=== PATIENT | male | born 1950 | race Caucasian/White ===

== ENCOUNTER 2017-01-01 09:07 | Day surgery (SDC) | payer BC ==
--- NOTE | 2016-12-27 11:38 | HP ---
DATE OF ADMISSION: 01/01/2013 PREOPERATIVE DIAGNOSIS: Bilateral inguinal hernias. BRIEF HISTORY: This is a 66-year-old gentleman with at least a 5-year history of having a lump and hernia in the right groin region. Over this time course, the lump has gotten significantly larger and now the patient states that whenever he coughs or has to strain to urinate he has to hold up his right groin because the mass becomes very large and causes discomfort. He has had no nausea, no vomiting. No change in bowel habits. He also has discomfort in the right groin from bending or prolonged standing. Occasionally has discomfort in the left groin as well. PAST MEDICAL HISTORY: Significant for hypertension, hypercholesterolemia, and diabetes. He has arthritis as well as depression, anxiety disorder. ALLERGIES: LACTOSE AND PENICILLIN; HOWEVER HIS PENICILLIN ALLERGY IS A CHILD AND NOT ENTIRELY CLEAR. MEDICATIONS: Cozaar, Metrozine, gabapentin, clonazepam. SOCIAL HISTORY: The patient does not smoke, nor drink. PHYSICAL EXAMINATION: LUNGS: Clear. HEART: Regular. ABDOMEN: Soft, nontender, nondistended. 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 He has a small supraumbilical hernia. It is chronically incarcerated. He has a large right inguinal hernia with extension through the proximal scrotum. The hernia is partially reducible in the supine. The right scrotum and testicle is within normal limits. On the left side, he has a small inguinal hernia as well. It is reducible. Left scrotum and testicle is within normal limits. IMPRESSION/PLAN: Bilateral inguinal hernias, small chronically incarcerated umbilical hernia, diastasis recti colon in a 66-year-old gentleman who has become much more symptomatic from a known large right inguinal hernia. At this point, I would recommend a laparoscopic repair of this hernia. Incidentally noted is a small left inguinal hernia and this should be repaired at the same setting. Both hernias will be repaired with mesh. The indications, alternatives, complications of the procedure were discussed at length. Questions answered. We will plan on obtaining written consent the day of surgery. LAN SMITH M.D. [id number] cc: Judy Swanson MD, [address] [facility] [address], [place], [place] Phone number [phone]
[2016-12-27 15:57] VITALS: BMI 25.8
[2017-01-01] MEDS ORDERED: LEVOFLOXACIN 500 MG IVPB 100 ML IVPB ONE (09:24)
[2017-01-01] MEDS ORDERED: TAMSULOSIN HCL 0.4 MG CAP.ER.24H (FP) ONE (09:26)
[2017-01-01] MEDS ORDERED: ROCURONIUM BROMIDE 50 MG/5 ML VIAL ONE ×2 (12:34→13:15)
[2017-01-01] MEDS ORDERED: PROPOFOL 20 ML ONE (12:34)
[2017-01-01] MEDS ORDERED: MIDAZOLAM HCL 2 MG/2 ML SINGLE DOSE VIAL ONE ×2 (12:34→14:07)
[2017-01-01] MEDS ORDERED: LIDOCAINE HCL/PF 2% SDV 5ML VIAL ONE (12:35)
[2017-01-01] MEDS ORDERED: LEVOFLOXACIN 500 MG PREMIX BAG IVPB ONE (12:49)
[2017-01-01] MEDS ORDERED: DEXAMETHASONE SOD PHOSPHATE 4 MG/1 ML VIAL ONE (13:22)
[2017-01-01] MEDS ORDERED: GLYCOPYRROLATE 0.2 MG/1 ML VIAL ONE ×2 (13:37→13:57)
[2017-01-01] MEDS ORDERED: NEOSTIGMINE METHYLSULFATE 0.5 MG/ML - 10 ML MDV ONE (13:37)
[2017-01-01] MEDS ORDERED: KETOROLAC TROMETHAMINE 30 MG/1 ML VIAL ONE (14:08)
[2017-01-01] MEDS ORDERED: ONDANSETRON 4 MG/2 ML VIAL IVPUSH PRN (14:13)
[2017-01-01] MEDS ORDERED: oxyCODONE HCL 5 MG TABLET PO PRN (14:13)
[2017-01-01] MEDS ORDERED: PROMETHAZINE HCL 25 MG/1 ML VIAL IVPUSH PRN (14:13)
[2017-01-01] MEDS ORDERED: LACTATED RINGERS SOLUTION 1,000 ML IV SCH (14:15)
[2017-01-01] MEDS ORDERED: HYDROmorphone HCL CARPU-JECT 2 MG/1 ML DISP.SYRIN ONE (14:43)
[2017-01-01] MEDS: HYDROmorphone HCL CARPU-JECT 1 MG/1 ML DISP.SYRIN IVPUSH PRN ×2 (14:55→15:00)
[2017-01-01 16:02] VITALS: TEMP 98.2
[2017-01-01] MEDS ORDERED: ONDANSETRON 4 MG/2 ML VIAL ONE (17:59)
[2017-01-01] MEDS ORDERED: ONDANSETRON 4 MG/2 ML VIAL IVPB ONE (18:00)
[2017-01-01 20:03] VITALS: BP 140/80; PULSE 84
--- NOTE | 2017-01-02 08:41 | OP ---
DATE OF OPERATION: 01/01/2017 PREOPERATIVE DIAGNOSIS: Chronically incarcerated bilateral inguinal hernias. POSTOPERATIVE DIAGNOSIS: Chronically incarcerated bilateral inguinal hernias, patient had bilateral incarcerated direct components, patient had bilateral pantaloon inguinal hernias, right markedly greater than left. PROCEDURES: Laparoscopic repair of bilateral inguinal hernias with mesh. SURGEON: Jeffery Bishop MD SUPERVISOR MECH[employer]IC BOILERMAKING: Francisco Valdes DO ANESTHESIA: Roney Mace MD (general). ESTIMATED BLOOD LOSS: Minimal. SPECIMEN: None. MEDICAL COMORBIDITIES: Include hypertension, hypercholesterolemia, diabetes, arthritis, depression, anxiety disorder, and coronary artery disease. INDICATIONS/PROCEDURE: This is a 66-year-old gentleman with a five year history of having a lump and a hernia in the right groin region. Over this time, of course, the lump has gotten very large, and now he has pain in the area when he coughs or strains or urinates. He wishes to have his hernias repaired. Patient was identified and appropriately positioned on the operating room table. After placement of general anesthesia, the abdomen was prepped and draped in the usual sterile fashion with ChloraPrep. An infraumbilical incision was made deep into the subcutaneous tissues. The fascia of the rectus muscle on the right identified, divided sharply, the muscles split. Under direct vision, a dissector balloon followed by structural balloon was placed. Also, under direct vision a suprapubic 11-mm port placed. The following structures on the right side identified, pubic tubercle, Coopers ligament, inferior epigastric vessels, spermatic cord, and lateral abdominal wall. During this dissection, the patient was noted to have a large direct inguinal hernia containing fat and portions of the bladder. This reduced back in the preperitoneal space with blunt dissection. He had a moderate-sized indirect inguinal hernia sac reduced back in the preperitoneal space with a small cord lipoma. A 4.5 x 6 piece of Versatex mesh was keyhole placed through the suprapubic port site. The mesh was wrapped around the cord structures laterally to reconstruct the internal ring. Laterally, the mesh anchored to the anterior abdominal wall and lateral abdominal wall. Medially, the mesh anchored to the anterior abdominal wall, pubic tubercle, and Coopers ligament. Upon completion of the right side, similar structures on the left side were identified. He had a similar finding on the left, but not as severe. There was an incarcerated direct inguinal hernia containing fat, smaller. This fat was reduced back into the preperitoneal space. He had a small indirect inguinal hernia sac, as well. This reduced back into the preperitoneal space. Another 4.5 x 6 piece of Versatex mesh was keyhole placed through the suprapubic port site. The mesh wrapped around the cord structures laterally to reconstruct the internal ring. Laterally, the mesh anchored to the anterior abdominal wall and lateral abdominal wall. Medially, the mesh well overlapped in the midline, anchored to the anterior abdominal wall, pubic tubercle, and Coopers ligament. The preperitoneal space desufflated under direct vision. The operative field was noted to be hemostatic. The fascia at the suprapubic port site and infraumbilical port site were reapproximated with interrupted 0 Vicryl suture. All skin closed with 4-0 Biosyn followed by Dermabond. At the conclusion of the case, sponge counts were correct. ATTESTATION: Brief operative note handwritten on the preprinted form. [place] CNC MANAGER will be queried prior to giving any narcotics. Opal JOHNSON [id number] cc: Susana Swanson, [address] [place] [address], [address], [place].
== END 2017-01-01 20:09 | disposition home or self-care (01) ==
LOC: JASU-SURG 09:07
PROVIDERS: ATTEND Surgery
PROC: 0YUA4JZ Supplement Bilateral Inguinal Region with Synthetic Substitute, Percutaneous Endoscopic Approach (ICD-10-PCS; principal; 2017-01-01 11:00)
DX: K40.00 Bilateral inguinal hernia, with obstruction, without gangrene, not specified as recurrent (principal)
CPT/HCPCS: 94760

== ENCOUNTER 2017-07-24 16:01 | Emergency (ER) | payer BC ==
[2017-07-24] MEDS ORDERED: ASPIRIN 81 MG CHEWABLE TABLETS PO ONE (16:05)
--- NOTE | 2017-07-24 16:06 | PDOC ---
Rapid Medical Evaluation Chief Complaint: Chest Pain Time Seen by Provider: 07/24/17 16:04 Medical Evaluation: Allergies Allergy/AdvReac Type Severity Reaction Status Date / Time Sulfa (Sulfonamide Allergy Severe Swelling Verified 12/27/16 15:46 Antibiotics) Penicillins Allergy Intermediate Swelling Verified 12/27/16 15:46 lactose AdvReac Intermediate Verified 12/27/16 15:45 07/24/17 16:05 66 year old male with HTN, dyslipidemia, depression, former smoker (quit 30 yrs ago) presenting with abdominal discomfort, chest pain, jaw pain that started while "power walking" just prior to arrival. -EKG -Labs including CBC, CMP, cardiac profile, PT/INR -CXR -ASA 325mg -To Main ED for further evaluation
[2017-07-24 16:07] VITALS: TEMP 98.2; BMI 28.7
[2017-07-24] MEDS ORDERED: ASPIRIN 81 MG CHEWABLE TABLETS ONE (16:25)
[2017-07-24 16:57] LABS: ALBUMIN 4.2 g/dl (3.4-5.0); ANION GAP 3 (8-16); BILIRUBIN,TOTAL 0.2 mg/dL (0.2-1.0); BLOOD UREA NITROGEN 14 mg/dL (7-18); CALCIUM 8.9 mg/dL (8.5-10.1); CHLORIDE 105 mmol/L (98-107); CO2 31 mmol/L (21-32); CREATININE 0.9 mg/dL (0.7-1.3); GLUCOSE,RANDOM 104 mg/dL (74-106); POTASSIUM 4.1 mmol/L (3.5-5.1); SGOT/AST 11 U/L (15-37); SGPT/ALT 20 U/L (12-78); SODIUM 139 mmol/L (136-145); TOT PROT 7.3 g/dl (6.4-8.2)
[2017-07-24 16:59] LABS: INR 0.99 (0.82-1.09); PROTHROMBIN TIME (PATIENT) 11.2 SEC (9.98-11.88)
[2017-07-24 17:00] LABS: ALK PHOS 81 U/L (45-117)
[2017-07-24] MEDS ORDERED: PANTOPRAZOLE SODIUM 40 MG in SODIUM CHLORIDE 100 ML IVPB ONE (17:15)
[2017-07-24 17:47] LABS: BASO % 0.4 % (0-2.0); EOS % 1.6 % (0-4.5); HEMATOCRIT 39.8 % (35.4-49); HEMOGLOBIN 13.6 GM/dL (11.7-16.9); LYMPH % 20.7 % (8-40); MCH 29.7 pg (25.7-33.7); MCHC 34.2 g/dl (32.0-35.9); MEAN CELL VOLUME 86.9 fl (80-96); MONO % 6.5 % (3.8-10.2); NEUT % 70.8 % (42.8-82.8); PLATELET COUNT 231 K/MM3 (134-434); RBC 4.58 M/mm3 (4.00-5.60); RDW 13.5 % (11.9-15.9); WHITE BLOOD COUNT 6.6 K/mm3 (4.0-10.0)
[2017-07-24] MEDS ORDERED: PANTOPRAZOLE SODIUM 40 MG VIAL ONE (18:00)
--- NOTE | 2017-07-24 18:16 | PDOC ---
History of Present Illness - General Chief Complaint: Chest Pain Stated Complaint: CHEST PAIN/JAW PAIN Time Seen by Provider: 07/24/17 16:04 History Source: Patient Exam Limitations: No Limitations - History of Present Illness Initial Comments: 07/24/17 17:17 66-year-old male presents to the emergency room with complaints of epigastric fluttering after power walking from his car to [facility]. Patient states although symptoms resolved within minutes he started to experience left jaw pain a few minutes thereafter which she describes an aching sensation which now has resolved. Patient denies history of cardiac disease but states history of hypertension borderline cholesterol and was a smoker 30 years ago. Patient states history of anxiety and has expanded similar symptoms the above but never associated which or pain. Patient states takes his Klonopin as needed. Patient states his last echo and stress was over 6 years ago and does not have a grand scribe. Patient denied left-sided chest pain pressure or palpitations since onset 2 hours ago. 07/24/17 18:20 Timing/Duration: changing over time Severity: moderate Associated Symptoms: reports: other Aspirin Received prior to arrival: Yes: 325 mg x 1, provided by ED Beta Radha Given by EMS(Core Measure): No Beta Radha Taken at Home(Core Measure): No Beta Radha Not Indicated at this Time(Core Measure): No Past History - Travel Traveled outside of the country in the last 30 days: No - Past Medical History Allergies/Adverse Reactions: Allergies Allergy/AdvReac Type Severity Reaction Status Date / Time Sulfa (Sulfonamide Allergy Severe Swelling Verified 07/24/17 16:07 Antibiotics) Penicillins Allergy Intermediate Swelling Verified 07/24/17 16:07 lactose AdvReac Intermediate Verified 07/24/17 16:07 Home Medications: Ambulatory Orders Lamotrigine [Lamotrigine ER] 350 mg PO DAILY 12/27/16 Losartan Potassium [Cozaar -] 150 mg PO DAILY 12/27/16 clonazePAM [Klonopin -] 0.5 mg PO BID 12/27/16 Oxycodone HCl/Acetaminophen [Percocet 5-325 mg Tablet] 1 tab PO Q4H PRN #42 tablet MDD 6 01/01/17 COPD: No HTN: Yes - Surgical History Abdominal Surgery: Yes (hernia repair) - Suicide/Smoking/Psychosocial Hx Smoking History: Former smoker Have you smoked in the past 12 months: No If you are a former smoker, when did you quit?: 1991 Information on smoking cessation initiated: No Hx Alcohol Use: No Drug/Substance Use Hx: No Substance Use Type: None Hx Substance Use Treatment: No Patient Lives Alone: Yes Lives with/in: lives alone Review of Systems - Review of Systems Able to Perform ROS?: Yes Constitutional: No: Symptoms Reported HEENTM: No: Symptoms Reported Respiratory: No: Symptoms reported Cardiac (ROS): Yes: Other ABD/GI: Yes: Indigestion Musculoskeletal: Yes: Neck Pain (left side) Integumentary: No: Symptoms Reported Neurological: No: Symptoms reported Endocrine: No: Symptoms Reported *Physical Exam - Vital Signs Last Vital Signs Temp Pulse Resp BP Pulse Ox 98.2 F 80 18 141/90 98 07/24/17 16:05 07/24/17 16:05 07/24/17 16:05 07/24/17 16:05 07/24/17 16:05 - Physical Exam General Appearance: Yes: Nourished, Appropriately Dressed. No: Apparent Distress HEENT: negative: Pale Conjunctivae Neck: positive: Normal Thyroid, Supple. negative: Tender, Decreased range of motion Respiratory/Chest: positive: Lungs Clear, Normal Breath Sounds. negative: Chest Tender Cardiovascular: positive: Regular Rhythm, Regular Rate. negative: Murmur Gastrointestinal/Abdominal: positive: Normal Bowel Sounds, Soft, Tenderness ( mild epigastric). negative: Distended, Guarding, Rebound Extremity: positive: Normal Capillary Refill. negative: Pedal Edema Integumentary: positive: Normal Color, Warm, Moist Neurologic: positive: Motor Strength 5/5 (ambulatory). negative: Normal Mood/ Affect (mildly anxious) ED Treatment Course - LABORATORY CBC & Chemistry Diagram: 07/24/17 16:21 07/24/17 16:21 - ADDITIONAL ORDERS Additional order review: Laboratory Results 07/24/17 07/24/17 16:21 16:21 PT with INR 11.20 INR 0.99 Sodium 139 Potassium 4.1 Chloride 105 Carbon Dioxide 31 Anion Gap 3 L BUN 14 Creatinine 0.9 Creat Clearance w eGFR > 60 Random Glucose 104 Calcium 8.9 Total Bilirubin 0.2 AST 11 L ALT 20 Alkaline Phosphatase 81 Creatine Kinase 113 Troponin I < 0.02 Total Protein 7.3 Albumin 4.2 07/24/17 16:21 RBC 4.58 MCV 86.9 MCHC 34.2 RDW 13.5 MPV 9.0 Neutrophils % 70.8 Lymphocytes % 20.7 Monocytes % 6.5 Eosinophils % 1.6 Basophils % 0.4 - Medications Given in the ED: ED Medications Discontinued Medications Generic Name Dose Route Start Last Admin Trade Name Poncho PRN Reason Stop Dose Admin Aspirin 324 mg 07/24/17 16:05 07/24/17 16:28 Asa - PO 07/24/17 16:06 324 mg ONCE ONE Administration Pantoprazole Sodium 40 mg/ 100 mls @ 200 mls/hr 07/24/17 17:15 07/24/17 17:30 Sodium Chloride IVPB 07/24/17 17:44 200 mls/hr ONCE ONE Administration Medical Decision Making - Medical Decision Making 07/24/17 18:22 Patient with episodic epigastric pain which resolved followed by his left jaw pain. Patient was concerned that this may be related to a heart attack versus anxiety so decided come to the ER. Patient states first went to [facility] but left since the wait was long and loud 07/24/17 18:24 Laboratory Tests 07/24/17 07/24/17 07/24/17 16:21 16:21 16:21 WBC 6.6 Hgb 13.6 Hct 39.8 Plt Count 231 Neutrophils % 70.8 PT with INR 11.20 INR 0.99 Sodium 139 Potassium 4.1 Chloride 105 Carbon Dioxide 31 Anion Gap 3 L BUN 14 Creatinine 0.9 Creat Clearance w eGFR > 60 Random Glucose 104 Calcium 8.9 Total Bilirubin 0.2 AST 11 L ALT 20 Creatine Kinase 113 Troponin I < 0.02 Total Protein 7.3 Albumin 4.2 Chest x-ray negative for acute findings. Patient will have second troponin done at 720 along with an EKG. Pt remains asymptomatic in regards to left-sided chest pain, palpitations, or pressure. 07/24/17 18:33 Patient states symptoms of epigastric discomfort has resolved with Protonix. Patient requesting to eat. Patient given tray
[2017-07-24] MEDS ORDERED: LOSARTAN POTASSIUM 50 MG TABLET (FP) PO ONE (18:31)
[2017-07-24] MEDS ORDERED: LOSARTAN POTASSIUM 25 MG TABLET ONE (19:05)
--- NOTE | 2017-07-24 20:37 | PDOC ---
*Physical Exam - Vital Signs Last Vital Signs Temp Pulse Resp BP Pulse Ox 98.2 F 68 16 137/101 100 07/24/17 16:05 07/24/17 18:31 07/24/17 18:31 07/24/17 18:31 07/24/17 18:31 ED Treatment Course - LABORATORY CBC & Chemistry Diagram: 07/24/17 16:21 07/24/17 16:21 - ADDITIONAL ORDERS Additional order review: Laboratory Results 07/24/17 07/24/17 16:21 16:21 PT with INR 11.20 INR 0.99 Sodium 139 Potassium 4.1 Chloride 105 Carbon Dioxide 31 Anion Gap 3 L BUN 14 Creatinine 0.9 Creat Clearance w eGFR > 60 Random Glucose 104 Calcium 8.9 Total Bilirubin 0.2 AST 11 L ALT 20 Alkaline Phosphatase 81 Creatine Kinase 113 Troponin I < 0.02 Total Protein 7.3 Albumin 4.2 07/24/17 16:21 RBC 4.58 MCV 86.9 MCHC 34.2 RDW 13.5 MPV 9.0 Neutrophils % 70.8 Lymphocytes % 20.7 Monocytes % 6.5 Eosinophils % 1.6 Basophils % 0.4 - Medications Given in the ED: ED Medications Discontinued Medications Generic Name Dose Route Start Last Admin Trade Name Freq PRN Reason Stop Dose Admin Aspirin 324 mg 07/24/17 16:05 07/24/17 16:28 Asa - PO 07/24/17 16:06 324 mg ONCE ONE Administration Pantoprazole Sodium 40 mg/ 100 mls @ 200 mls/hr 07/24/17 17:15 07/24/17 17:30 Sodium Chloride IVPB 07/24/17 17:44 200 mls/hr ONCE ONE Administration Losartan Potassium 100 mg 07/24/17 18:31 07/24/17 18:35 Cozaar - PO 07/24/17 18:32 100 mg ONCE ONE Administration Medical Decision Making - Medical Decision Making 07/24/17 20:33 Patient was endorsed to me to follow repeat cardiac enzymes and EKG and disposition. patient seen and evaluated. States is feeling better and is refusing repeat trop and ekg. He was advised that this condition is undiagnosed and trop is essential to his work up and could be having a heart attack. states he understand and want to sign out AMA. Patient is alert and oriented, and expressed that he would like to leave AGAINST MEDICAL ADVICE. I discussed with them the risks of leaving include , undiagnosed cardiac condition. Patient states he would like to leave because he feels better and does not want to stay. I believe that the patient understands our discussion and is capable of making an informed decision about leaving against medical advice. I also discussed with the patient that they may return at any time to complete their workup *DC/Admit/Observation/Transfer Diagnosis at time of Disposition: Chest pain - Discharge Dispostion Disposition: AGAINST MEDICAL ADVICE Condition at time of disposition: Stable - Referrals - Patient Instructions Printed Discharge Instructions: DI for Chest Pain Additional Instructions: Your Discharge Instructions: You are leaving AGAINST MEDICAL ADVICE. You must call primary care physician within 24 hours to arrange follow-up. Return to the Emergency Department with any new, persistent or worsening symptoms, for fever, chills, SOB, dizziness or any other concerning changes that may occur. - Post Discharge Activity
[2017-07-24 20:43] VITALS: BP 135/96; PULSE 74
--- NOTE | 2017-07-25 10:41 | EKG ---
Test Reason : Blood Pressure : / mmHG Vent. Rate : 078 BPM Atrial Rate : 078 BPM P-R Int : 194 ms QRS Dur : 114 ms QT Int : 386 ms P-R-T Axes : 039 -38 043 degrees QTc Int : 440 ms SINUS RHYTHM WITH OCCASIONAL PREMATURE VENTRICULAR COMPLEXES LEFT AXIS DEVIATION ABNORMAL ECG NO PREVIOUS ECGS AVAILABLE Confirmed by TARA GUPTA MD ([id number]) on 07/25/2017 10:41:23 AM Referred By: Confirmed By:TARA GUPTA MD
== END 2017-07-24 20:43 | disposition left against medical advice (07) ==
LOC: JER 16:01
DX: I10 Essential (primary) hypertension (principal); E78.00 Pure hypercholesterolemia, unspecified; F32.9 Major depressive disorder, single episode, unspecified; Z87.891 Personal history of nicotine dependence
CPT/HCPCS: 36415; 71045-TC-FY; 80053; 82550; 84484; 85025; 85610; 93005; 93010; 99284-25

== ENCOUNTER 2020-05-17 13:19 | Emergency (ER) | payer OTHER, BC ==
[2020-05-17 13:45] VITALS: BP 114/83; PULSE 79; TEMP 99; BMI 25.8
[2020-05-17] MEDS ORDERED: BAMLANIVIMAB 700 MG in SODIUM CHLORIDE 180 ML IVPB ONE (13:54)
== END 2020-05-17 15:10 | disposition home or self-care (01) ==
LOC: JER 13:19
DX: U07.1 COVID-19 (principal)
CPT/HCPCS: 71046-TC-FY; 99284-25

== ENCOUNTER 2020-11-15 20:26 | Emergency (ER) | payer BC ==
[2020-11-15 21:06] VITALS: TEMP 98.6; BMI 26.1
[2020-11-15] MEDS ORDERED: ASPIRIN 81 MG CHEWABLE TABLETS PO ONE (21:44)
[2020-11-15] MEDS ORDERED: ASPIRIN 81 MG CHEWABLE TABLETS ONE (22:02)
[2020-11-15 22:27] LABS: BASO % 1.3 % (0-2.0); EOS % 2.1 % (0-4.5); HEMATOCRIT 39.7 % (35.4-49); HEMOGLOBIN 13.5 GM/dL (11.7-16.9); LYMPH % 28.8 % (8-40); MEAN CELL VOLUME 85.4 fl (80-96); MEAN PLT VOLUME 7.7 fl (7.5-11.1); MONO % 7.4 % (3.8-10.2); NEUT % 60.4 % (42.8-82.8); PLATELET COUNT 212 10^3/uL (134-434); RBC 4.65 M/mm3 (4.00-5.60); RDW 13.7 % (11.9-15.9); WHITE BLOOD COUNT 7.9 K/mm3 (4.0-10.0)
[2020-11-15 22:38] LABS: INR 0.97 (0.83-1.09); PROTHROMBIN TIME (PATIENT) 11.9 SEC (9.7-13.0)
[2020-11-15 22:41] LABS: ACTIVATED PTT 31.1 SECONDS (25.2-36.5)
[2020-11-15 22:46] LABS: CHLORIDE 104 mmol/L (98-107); SODIUM 140 mmol/L (136-145)
[2020-11-15 22:49] LABS: ANION GAP 7 MMOL/L (8-16); BLOOD UREA NITROGEN 16.8 mg/dL (7-18); CO2 30 mmol/L (21-32); GLUCOSE,RANDOM 88 mg/dL (74-106); MAGNESIUM 2.2 mg/dL (1.8-2.4)
[2020-11-15 22:52] LABS: SGPT/ALT 30 U/L (13-61)
[2020-11-15 22:53] LABS: SGOT/AST 18 U/L (15-37)
[2020-11-15 22:54] LABS: BILIRUBIN,TOTAL 0.7 mg/dL (0.2-1); TOT PROT 6.9 g/dl (6.4-8.2)
[2020-11-15 22:55] LABS: ALK PHOS 68 U/L (45-117)
[2020-11-16 03:28] VITALS: BP 127/86; PULSE 73
== END 2020-11-16 | disposition left against medical advice (07) ==
LOC: JER 20:26
DX: R07.9 Chest pain, unspecified (principal)
CPT/HCPCS: 36415; 71046-TC-FY; 80053; 82550; 83735; 84484; 85025; 85610; 85730; 93005; 93010; 99285-25

== ENCOUNTER 2022-02-02 13:22 | Emergency (ER) | payer BC, OTHER ==
[2022-02-02 13:37] VITALS: RESP 18; BMI 28.0
[2022-02-02 15:22] LABS: BASO % 0.5 % (0-2.0); EOS % 1.5 % (0-4.5); HEMATOCRIT 39.1 % (35.4-49); HEMOGLOBIN 13.4 GM/dL (11.7-16.9); LYMPH % 20.7 % (8-40); MCHC 34.2 g/dl (32.0-35.9); MEAN CELL VOLUME 84.8 fl (80-96); MEAN PLT VOLUME 7.6 fl (7.5-11.1); MONO % 9.3 % (3.8-10.2); PLATELET COUNT 230 10^3/uL (134-434); RBC 4.61 M/mm3 (4.00-5.60); RDW 13.6 % (11.9-15.9); WHITE BLOOD COUNT 7.6 K/mm3 (4.0-10.0)
[2022-02-02 15:43] LABS: ALBUMIN 3.9 g/dl (3.4-5.0); BLOOD UREA NITROGEN 16.3 mg/dL (7-18)
[2022-02-02 15:47] LABS: BILIRUBIN,TOTAL 0.3 mg/dL (0.2-1)
[2022-02-02 16:33] VITALS: BP 135/72; PULSE 75; TEMP 98.2
== END 2022-02-02 16:36 | disposition left against medical advice (07) ==
LOC: JER 13:22
DX: R06.02 Shortness of breath (principal)
CPT/HCPCS: 36415; 71046-TC-FY; 80053; 84484; 85025; 93005; 93010; 99285-25

== ENCOUNTER 2023-08-05 05:02 | Day surgery (SDC) | payer OTHER ==
[2023-07-31 13:41] VITALS: BMI 28.0
[2023-08-05] MEDS ORDERED: LIDOCAINE HCL/PF 1% SDV 5ML VIAL ONE (07:11)
[2023-08-05 07:32] VITALS: RESP 18
[2023-08-05] MEDS ORDERED: BUPIVACAINE HCL/PF 0.5% (5MG/ML) 10 ML VIAL ONE (08:14)
[2023-08-05] MEDS ORDERED: TRIAMCINOLONE ACET 40MG/1ML VIAL ONE (08:14)
[2023-08-05] MEDS ORDERED: LIDOCAINE HCL/PF 2% SDV 5ML VIAL ONE (08:16)
[2023-08-05] MEDS ORDERED: SODIUM CHLORIDE 0.9% P/F 10 ML VIAL IJ ONE (08:16)
[2023-08-05] MEDS ORDERED: DEXAMETHASONE SOD PHOSPHATE 10 MG/1 ML VIAL ONE (09:27)
[2023-08-05] MEDS: IOHEXOL 180 MG/1 ML ML IJ ONE ×2 (09:32)
[2023-08-05] MEDS: DEXAMETHASONE SOD PHOSPHATE 10 MG/1 ML VIAL IM ONE (09:32)
[2023-08-05] MEDS: LIDOCAINE HCL 1% PRESERVATIVE FREE - 30ML VIAL IJ ONE ×2 (09:32)
[2023-08-05 09:54] VITALS: BP 140/100; PULSE 86; TEMP 98.6
[2023-08-05] MEDS ORDERED: ACETAMINOPHEN 500 MG TABLET (FP) PO PRN (12:27)
== END 2023-08-05 10:14 | disposition home or self-care (01) ==
LOC: JASU-SURG 05:02
PROVIDERS: ATTEND Pain Medicine Pain Medicine
PROC: 3E0R3BZ Introduction of Anesthetic Agent into Spinal Canal, Percutaneous Approach (ICD-10-PCS; 2023-08-05)
PROC: 3E0R33Z Introduction of Anti-inflammatory into Spinal Canal, Percutaneous Approach (ICD-10-PCS; principal; 2023-08-05 09:15)
DX: M54.16 Radiculopathy, lumbar region (principal)
CPT/HCPCS: 76000-TC-FY; J1100

== ENCOUNTER 2023-09-02 04:37 | Day surgery (SDC) | payer OTHER ==
[2023-08-28 12:23] VITALS: BMI 28.0
[2023-09-02] MEDS ORDERED: LIDOCAINE HCL/PF 1% SDV 5ML VIAL ONE (07:11)
[2023-09-02] MEDS ORDERED: DEXAMETHASONE SOD PHOSPHATE 10 MG/1 ML VIAL ONE (07:11)
[2023-09-02 10:44] VITALS: TEMP 97.9
[2023-09-02] MEDS: LIDOCAINE 1% P/F 10 MG/ML VIAL INF ONE ×3 (11:41→11:43)
[2023-09-02] MEDS: DEXAMETHASONE SOD PHOSPHATE 10 MG/1 ML VIAL IVPUSH ONE ×3 (11:43)
[2023-09-02] MEDS: IOHEXOL 180 MG/1 ML ML IJ ONE ×3 (11:43)
[2023-09-02 12:36] VITALS: BP 110/90; PULSE 88; RESP 16
[2023-09-02] MEDS ORDERED: ACETAMINOPHEN 500 MG TABLET (FP) PO PRN (15:15)
== END 2023-09-02 12:30 | disposition home or self-care (01) ==
LOC: JASU-SURG 04:37
PROVIDERS: ATTEND Pain Medicine Pain Medicine
PROC: 3E0R3BZ Introduction of Anesthetic Agent into Spinal Canal, Percutaneous Approach (ICD-10-PCS; 2023-09-02)
PROC: 3E0R33Z Introduction of Anti-inflammatory into Spinal Canal, Percutaneous Approach (ICD-10-PCS; principal; 2023-09-02 11:15)
DX: M54.16 Radiculopathy, lumbar region (principal)
CPT/HCPCS: 76000-TC-FY; J1100

== ENCOUNTER 2024-01-01 04:22 | Day surgery (SDC) | payer OTHER ==
[2023-12-30 15:19] VITALS: BMI 28.7
[2024-01-01] MEDS ORDERED: BUPIVACAINE HCL/PF 0.75% 10 ML VIAL ONE (07:38)
[2024-01-01] MEDS ORDERED: LIDOCAINE HCL/PF 1% SDV 5ML VIAL ONE (07:38)
[2024-01-01 11:10] VITALS: RESP 18
[2024-01-01] MEDS: BUPIVACAINE HCL/PF 0.75% 10 ML VIAL NR ONE ×3 (12:01)
[2024-01-01] MEDS: LIDOCAINE 1% P/F 10 MG/ML VIAL PNB ONE ×3 (12:01)
[2024-01-01 12:53] VITALS: BP 131/73; PULSE 77; TEMP 97.7
[2024-01-01] MEDS ORDERED: ACETAMINOPHEN 500 MG TABLET (FP) PO PRN (19:49)
== END 2024-01-01 12:35 | disposition home or self-care (01) ==
LOC: JASU-SURG 04:22
PROVIDERS: ATTEND Pain Medicine Pain Medicine
PROC: 3E0T3BZ Introduction of Anesthetic Agent into Peripheral Nerves and Plexi, Percutaneous Approach (ICD-10-PCS; principal; 2024-01-01 12:01)
DX: M47.816 Spondylosis without myelopathy or radiculopathy, lumbar region (principal)
CPT/HCPCS: 76000-TC-FY